=== PATIENT | female | born 1980 | race African-American/Black ===

== ENCOUNTER 2021-11-17 22:07 | Emergency (ER) | payer OTHER ==
[~2021-11-17 22:07] MED LIST: LIDOCAINE PATCH REMOVAL MC SCH
[2021-11-17 22:20] VITALS: BP 114/66; PULSE 75; RESP 20; TEMP 98.2; BMI 22.0
[2021-11-17] MEDS ORDERED: KETOROLAC TROMETHAMINE 30 MG/1 ML VIAL IM ONE (23:43)
[2021-11-17] MEDS ORDERED: LIDOCAINE 5% TOPICAL PATCH TP ONE ×2 (23:43→23:59)
[2021-11-17] MEDS ORDERED: KETOROLAC TROMETHAMINE 30 MG/1 ML VIAL ONE (23:45)
[2021-11-17] MEDS ORDERED: LIDOCAINE 5% TOPICAL PATCH ONE (23:45)
[2021-11-18] MEDS ORDERED: LIDOCAINE 5% TOPICAL PATCH ONE (00:10)
[2021-11-18] MEDS ORDERED: LIDOCAINE PATCH REMOVAL MC SCH (22:00)
== END 2021-11-18 00:24 | disposition home or self-care (01) ==
LOC: JERFT 22:07
PROC: 3E0233Z Introduction of Anti-inflammatory into Muscle, Percutaneous Approach (ICD-10-PCS; principal; 2021-11-17)
DX: M54.16 Radiculopathy, lumbar region (principal)
CPT/HCPCS: 72100-TC-FY; 99284-25